=== PATIENT | female | born 1985 | race American Indian/Alaskan Native ===

== ENCOUNTER 2017-01-23 02:38 | Emergency (ER) | payer SELFPAY ==
[~2017-01-23] VITALS: Ht 167.6 cm; Wt 77.1 kg
[~2017-01-23 02:38] MED LIST: NKM
[2017-01-23 02:44] VITALS: BP 117/68
[2017-01-23] MEDS ORDERED: LORazepam Inj 2mg/ml 1ml IV ONE (03:00)
--- NOTE | 2017-01-23 04:27 | Emergency Room Report ---
History of Present Illness General Chief Complaint: Substance Abuse Source: Patient Present Illness HPI Is a 31-year-old female with history anxiety. She presents with chief complaint of palpitation. Also feeling anxious. She did several lines of cocaine and drank 6 beers tonight. No chest pain. No fever chills. No suicidal thought homicidal thought. Allergies: Coded Allergies: No Known Allergies (Unverified , 01/23/17) Patient History Past Medical History: see triage record, old chart reviewed Past Surgical History: none Pertinent Family History: none Social History: Reports: alcohol use, drug use, smoking Last Menstrual Period: 2 WEEKS AGO Now: No Immunizations: other Reviewed Nursing Documentation: PMH: Agreed, PSxH: Agreed Nursing Documentation-PMH Past Medical History: No Stated History Review of Systems Eye: Denies: blurred vision, eye pain ENT: Denies: ear pain, nose congestion, throat swelling Respiratory: Denies: cough, shortness of breath Cardiovascular: Reports: palpitations, Denies: chest pain Gastrointestinal: Denies: abdominal pain, diarrhea, nausea, vomiting Musculoskeletal: Denies: back pain, joint pain Skin: Denies: rash Neurological: Denies: headache, numbness Endocrine: Denies: increased thirst, increased urine Hematologic/Lymphatic: Denies: easy bruising All Other Systems: negative except mentioned in HPI Physical Exam Vital Signs Date Time Temp Pulse Resp B/P Pulse Ox O2 Delivery O2 Flow Rate FiO2 01/23/17 02:28 98.1 145 18 117/68 100 Room Air vitals with tachycardia Sp02 EP Interpretation: reviewed, normal General Appearance: well appearing, no apparent distress, alert Head: normocephalic, atraumatic Eyes: bilateral eye EOMI, bilateral eye PERRL ENT: hearing grossly normal, normal pharynx Neck: full range of motion, supple, no meningismus Respiratory: chest non-tender, lungs clear, normal breath sounds Cardiovascular #1: regular rate, rhythm, no murmur Gastrointestinal: normal bowel sounds, non tender, no mass, no organomegaly, no bruit, non-distended Musculoskeletal: back normal, gait/station normal, normal range of motion Psychiatric: mood/affect normal Skin: warm/dry Medical Decision Making Diagnostic Impression: Primary Impression: Substance abuse Additional Impression: Palpitations ER Course She presents with tachycardia and palpitations secondary to drug abuse. No suicidal thought or homicidal thought. She felt better after Ativan. Heart rate coming down to the 110s. EKG Diagnostic Results EKG Time: 04:26 Rate: normal, tachycardiac Rhythm: NSR ST Segments: no acute changes Rhythm Strip Diag. Results Rhythm Strip Time: 04:26 EP Interpretation: yes Rate: 110 Rhythm: NSR Last Vital Signs Date Time Temp Pulse Resp B/P Pulse Ox O2 Delivery O2 Flow Rate FiO2 01/23/17 02:44 98.1 18 117/68 100 Room Air 01/23/17 02:28 145 Status: improved Disposition: HOME, SELF-CARE Condition: Stable Patient Instructions: Substance Use Disorder Additional Instructions: Abstain from drugs and alcohol. Go to Rehabilitation. Return if symptom worsen. Followup with your DrMyesha in 7 days. LEYDA WYATT M.D. Jan 23, 2017 04:27
[2017-01-23 04:42] VITALS: BP 127/83
[2017-01-23 04:43] VITALS: BP 117/68
--- NOTE | 2017-01-27 16:25 | Cardiology Report ---
APPROVED REPORT EKG Measurement Heart [id number] Sinus tachycardia Rightward axis Borderline ECG
== END 2017-01-23 04:43 | disposition home or self-care (01) ==
LOC: EDBD 02:38 → EMR 03:20
DX: F14.188 Cocaine abuse with other cocaine-induced disorder (principal); R00.2 Palpitations; R00.0 Tachycardia, unspecified; T40.5X5A Adverse effect of cocaine, initial encounter; Y92.89 Other specified places as the place of occurrence of the external cause; F17.200 Nicotine dependence, unspecified, uncomplicated
CPT/HCPCS: 93005; 96361; 96374